=== PATIENT | female | born 1960 | race Caucasian/White ===

== ENCOUNTER 2017-09-10 08:35 | Day surgery (SDC) | payer BC ==
[~2017-09-10] VITALS: Ht 160 cm; Wt 47.6 kg
[~2017-09-10 08:35] MED LIST: ADULT ONE DAI200 MCG PO; ADVIL,NUPRIN,M200 MG PO
[2017-09-10 09:28] VITALS: BP 133/65
[2017-09-10 09:49] LABS: HEMATOCRIT 40.1 % (36.0-46.0); HEMOGLOBIN 13.2 G/DL (11.9-15.5); MCH 31.3 PG (29.0-34.0); MCHC 32.9 G/DL (30.0-36.0); PLATELET COUNT 328 K/uL (156-360); RBC DIS.WIDTH-CV 11.9 % (11.8-14.6); RBC DIS.WIDTH-SD 41.4 % (39-53); RED BLOOD COUNT 4.22 M/uL (3.80-5.20)
[2017-09-10] MEDS ORDERED: MOTRIN800 MG PO (10:51)
[2017-09-10 12:32] VITALS: BP 108/76
== END 2017-09-10 13:50 | disposition home or self-care (01) ==
LOC: SDC 08:35
PROVIDERS: Obstetrics & Gynecology
PROC: 0UBC8ZX Excision of Cervix, Via Natural or Artificial Opening Endoscopic, Diagnostic (ICD-10-PCS; principal; 2017-09-10)
DX: D06.9 Carcinoma in situ of cervix, unspecified (principal); E78.00 Pure hypercholesterolemia, unspecified; Z80.42 Family history of malignant neoplasm of prostate; Z80.0 Family history of malignant neoplasm of digestive organs
CPT/HCPCS: 85027; 86850; 86900; 86901; 88305; 88307; J1100; J2405; J3010; Q0175